=== PATIENT | male | born 1980 ===

== ENCOUNTER → 2018-04-06 19:01 | Outpatient (REF) | payer OTHER, SELFPAY ==
[2018-04-06 19:09] LABS: Add Manual Diff / Slide Review NO; Basophils Absolute Auto 100 /uL (0-100); Basophils Percent Auto 0.8 % (0-2); Eosinophils Absolute Auto 300 /uL (0-450); Eosinophils Percent Auto 3.7 % (2-4); Hematocrit 49.8 % (41-53); Lymphocytes Absolute Auto 2100 /uL (1100-4500); Lymphocytes Percent Auto 26.9 % (25-40); Mean Corpuscular HGB Conc 34.2 % (30-36); Mean Corpuscular Hemoglobin 30.4 PG (26-34); Mean Corpuscular Volume 88.9 fL (80-100); Monocytes Absolute Auto 700 /uL (0-900); Monocytes Percent Auto 9.2 % (3-14); Neutrophils Absolute Auto 4700 /uL (1500-7000); Neutrophils Percent Auto 59.4 % (50-75); Platelet Count 285 X10^3/uL (150-400); Red Cell Distribution Width 13.5 % (11.6-14.8)
[2018-04-06 19:20] LABS: Alanine Aminotransferase 44 IU/L (21-72); Albumin 4.6 g/dL (3.5-5.0); Albumin Globulin Ratio 1.4 (1.0-2.8); Alkaline Phosphatase 92 U/L (38-126); Aspartate Aminotransferase 31 IU/L (17-59); Bilirubin Total 0.7 mg/dL (0.2-1.3); Blood Urea Nitrogen 12 mg/dL (9-20); Calcium 9.5 mg/dL (8.4-10.2); Carbon Dioxide 22 mmol/L (22-32); Chloride 106 mmol/L (98-107); Cholesterol 221 mg/dL (140-199); Estimated Glomerular Filt Rate > 60.0 mL/min (>60); Globulin 3.3 g/dL (1.7-4.1); Glucose 61 mg/dL (70-100); HDL Cholesterol 39 mg/dL (40-60); HEMOLYSIS 23 (0-50); LDL Cholesterol Calculated 105 mg/dL (<100); Potassium 4.2 mmol/L (3.4-5.1); Sodium 141 mmol/L (137-145); Total Protein 7.9 g/dL (6.3-8.2); Triglycerides 385 mg/dL (35-150)
== END ==
LOC: LAB 19:01
PROVIDERS: Visit Provider Nurse Practitioner Acute Care
DX: R73.01 Impaired fasting glucose (principal); I10 Essential (primary) hypertension; E78.00 Pure hypercholesterolemia, unspecified; E78.1 Pure hyperglyceridemia; M1A.00X0 Idiopathic chronic gout, unspecified site, without tophus (tophi)
CPT/HCPCS: 80053; 80061; 83036; 85025

== ENCOUNTER → 2018-07-29 18:58 | Outpatient (ROUT) | payer OTHER, SELFPAY ==
[2018-07-29 19:20] LABS: Alanine Aminotransferase 44 IU/L (21-72); Albumin 4.5 g/dL (3.5-5.0); Albumin Globulin Ratio 1.4 (1.0-2.8); Alkaline Phosphatase 134 U/L (38-126); Aspartate Aminotransferase 67 IU/L (17-59); BUN Creatinine Ratio 22.9 (6-22); Bilirubin Total 0.8 mg/dL (0.2-1.3); Blood Urea Nitrogen 16 mg/dL (9-20); Carbon Dioxide 19 mmol/L (22-32); Chloride 103 mmol/L (98-107); Estimated Glomerular Filt Rate > 60.0 mL/min (>60); Globulin 3.3 g/dL (1.7-4.1); Glucose 284 mg/dL (70-100); HEMOLYSIS 24 (0-50); Potassium 4.5 mmol/L (3.4-5.1); Sodium 138 mmol/L (137-145); Total Protein 7.8 g/dL (6.3-8.2)
== END ==
PROVIDERS: Visit Provider Nurse Practitioner Acute Care
DX: E11.9 Type 2 diabetes mellitus without complications (principal)
CPT/HCPCS: 80053

== ENCOUNTER → 2018-08-18 19:41 | Outpatient (ROUT) | payer OTHER, SELFPAY ==
[2018-08-18 20:34] LABS: Erythrocyte Sedimentation Rate 4 MM/HR (0-15)
[2018-08-18 20:36] LABS: Alanine Aminotransferase 33 IU/L (21-72); Albumin 4.4 g/dL (3.5-5.0); Albumin Globulin Ratio 1.5 (1.0-2.8); Alkaline Phosphatase 119 U/L (38-126); Aspartate Aminotransferase 14 IU/L (17-59); Blood Urea Nitrogen 22 mg/dL (9-20); Calcium 9.9 mg/dL (8.4-10.2); Carbon Dioxide 10 mmol/L (22-32); Chloride 94 mmol/L (98-107); Estimated Glomerular Filt Rate > 60.0 mL/min (>60); Globulin 2.9 g/dL (1.7-4.1); Glucose 476 mg/dL (70-100); HDL Cholesterol 49 mg/dL (40-60); HEMOLYSIS < 15 (0-50); Potassium 4.8 mmol/L (3.4-5.1); Sodium 130 mmol/L (137-145); Total Protein 7.3 g/dL (6.3-8.2); Triglycerides 502 mg/dL (35-150)
[2018-08-18 20:41] LABS: Cholesterol 315 mg/dL (140-199)
[2018-08-18 20:52] LABS: Free T3, Triiodothyronine Free 2.33 pg/mL (2.77-5.27); Free T4, Direct Thyroxine 1.61 ng/dL (0.78-2.19)
[2018-08-18 21:05] LABS: Cortisol Random 28.6 ug/dL
[2018-08-18 21:06] LABS: Thyroid Stimulating Hormone 1.14 uIU/mL (0.47-4.68)
[2018-08-18 21:24] LABS: Vitamin B12 938 pg/mL (239-931)
== END ==
PROVIDERS: Visit Provider Nurse Practitioner Acute Care
DX: R42 Dizziness and giddiness (principal); R63.4 Abnormal weight loss; R63.0 Anorexia; E10.9 Type 1 diabetes mellitus without complications; E88.81 Metabolic syndrome and other insulin resistance; I10 Essential (primary) hypertension
CPT/HCPCS: 80053; 80061; 82533; 82607; 84439; 84443; 84481; 85651; 86341